=== PATIENT | female | born 2000 ===

== ENCOUNTER 2023-04-10 20:16 | Emergency (ER) | payer SELFPAY ==
[2023-04-10] MEDS ORDERED: predniSONE 20 MG TAB ONE (20:45)
[2023-04-10] MEDS ORDERED: VALACYCLOVIR 500 MG TAB ONE (20:45)
--- NOTE | 2023-04-10 20:53 | ER ---
Nurse's Notes [facility] Name: Kari Leblanc Age: 22 yrs Sex: Female : 2000 Arrival Date: 04/10/2023 Time: 20:16 Bed IW5 Private MD: Diagnosis: Rayo's palsy Presentation: 04/10 20:24 Chief complaint: Patient states: "My tongue has felt funny when I woke up this morning, mb9 feels burnt. I have a bad headache and my right side of mouth is drooping. My mother in law noticed my face around 1830 today." Last known normal was 2am. Coronavirus screen: Vaccine status: Patient reports receiving the 2nd dose of the covid vaccine. Ebola Screen: No symptoms or risks identified at this time. Initial Sepsis Screen: Does the patient meet any 2 criteria? No. Patient's initial sepsis screen is negative. Does the patient have a suspected source of infection? No. Patient's initial sepsis screen is negative. Risk Assessment: Do you want to hurt yourself or someone else? Patient reports no desire to harm self or others. Onset of symptoms was April 10, 2023. 20:24 Method Of Arrival: Ambulatory mb9 20:28 Acuity: KALYAN 3 mb9 Triage Assessment: 20:28 The onset of the patients symptoms was. General: Appears in no apparent distress. mb9 Behavior is calm, cooperative. Pain: Complains of pain in head Pain does not radiate. Quality of pain is described as pressure, Is continuous. Neuro: [place] Agitation-Sedation Scale (RASS): 0 - Alert and Calm Level of Consciousness is awake, alert, obeys commands, Oriented to person, place, time, situation, Appropriate for age Juice Mixer are equal bilaterally Moves all extremities. Gait is steady, Speech is normal, Facial droop on left, Pupils are PERRLA, Intact Reports headache. Derm: Skin is pink, warm \\T\\ dry. Historical: - Allergies: 20:28 No Known Allergies; mb9 - Home Meds: 20:28 None [Active]; mb9 - PMHx: 20:28 None; mb9 - PSHx: 20:28 None; mb9 - Immunization history:: Adult Immunizations up to date. - Social history:: Smoking status: Patient denies any tobacco usage or history of. - Family history:: not pertinent. Screenin:31 [facility] ED Fall Risk Assessment (Adult) History of falling in the last 3 months, mb9 including since admission No falls in past 3 months (0 pts) Confusion or Disorientation No (0 pts) Intoxicated or Sedated No (0 pts) Impaired Gait No (0 pts) Mobility Assist Device Used No (0 pt) Altered Elimination No (0 pt) Score/Fall Risk Level 0 - 2 = Low Risk Oriented to surroundings, Maintained a safe environment, Educated pt \\T\\ family on fall prevention, incl call for assistance when getting out of bed. Abuse screen: Denies threats or abuse. Nutritional screening: No deficits noted. Tuberculosis screening: No symptoms or risk factors identified. Assessment: 20:31 Reassessment: see triage assessment. mb9 Vital Signs: 20:24 BP 137 / 95; Pulse 87; Resp 18; Temp 98.1; Pulse Ox 100% ; Weight 136.08 kg; Height 5 mb9 ft. 4 in. ; 20:24 Body Mass Index 51.49 (136.08 kg, 162.56 cm) mb9 NIH Stroke Scale Scores: 20:35 NIHSS Score: 1 [facility] ED Course: 20:20 Patient arrived in ED. ag3 20:24 Arm band placed on. mb9 20:27 Terry Sharif MD is Attending Physician. [facility] 20:28 Triage completed. mb9 20:31 Bed in low position. Call light in reach. Side rails up X 1. Client placed on mb9 continuous cardiac and pulse oximetry monitoring. NIBP monitoring applied. 20:52 Dinh Romero MD is Referral Physician. [facility] 20:57 CT Head Brain wo Cont In Process Unspecified. EDMS 21:00 No provider procedures requiring assistance completed. Patient did not have IV access kl during this emergency room visit. Administered Medications: 20:35 Drug: predniSONE PO 60 mg PO once Route: PO; mb9 20:35 Drug: valACYclovir PO 1000 mg PO once Route: PO; mb9 Medication: 21:01 VIS not applicable for this client. kl Outcome: 20:52 Discharge ordered by . [facility] 21:00 Discharged to home ambulatory, with family, 21:00 Condition: stable 21:00 Discharge instructions given to patient, Instructed on discharge instructions, follow up and referral plans. medication usage, Demonstrated understanding of instructions, follow-up care, medications, Prescriptions given X 3, 21:01 Patient left the ED. NIH Stroke Scale - NIH Stroke Score Date: 04/10/2023 Time: 20:35 Total Score = 1 10. Dysarthria (speech clarity - read or repeat words) - 0(Normal) 11. Extinction and Inattention (visual/tactile/auditory/spatial/personal) - 0(No abnormality) 1a. Level of Consciousness (LOC) - 0(Alert) 1b. Level of Consciousness (LOC) (Month \\T\\ Age) - 0(Both) 1c. LOC Commands (Open \\T\\ Closes Eyes/Gas Adjuster) - 0(Both) 2. Best Gaze (Lateral Gaze Paresis) - 0(Normal) 3. Visual Field Loss - 0(No visual loss) 4. Facial Palsy - 1(Minor Paralysis) 5a. Left Arm: Motor (10-second hold) - 0(No drift) 5b. Right Arm: Motor (10-second hold) - 0(No drift) 6a. Left Leg: Motor (5-second hold - always test supine) - 0(No drift) 6b. Right Leg: Motor (5-second hold - always test supine) - 0(No drift) 7. Limb Ataxia (finger/nose \\T\\ heel/price - test with eyes open) - 0(Absent) 8. Sensory Loss (pinprick arms/legs/face) - 0(Normal) 9. Best Language: Aphasia (description/naming/reading) - 0(No aphasia) Initials: janeth Signatures: Dispatcher [employer] EDAlia Marquez RN RN kl Anderson, Corey, MD MD cha Gomez, Alice ag3 Breneman, Mary Beth, RN RN mb9 Corrections: (The following items were deleted from the chart) 20:28 20:24 Chief complaint: Patient states: "My tongue has felt funny when I woke up alex this morning, feels burnt. I have a bad headache and my right side of mouth is drooping. My mother in law noticed my face around 1830 today." alex
--- NOTE | 2023-04-10 20:53 | EDPHYS ---
Physician Documentation [facility] Name: Kari Leblanc Age: 22 yrs Sex: Female : 2000 Arrival Date: 04/10/2023 Time: 20:16 Bed IW5 Private MD: ED Physician Terry Sharif HPI: 04/10 20:35 This 22 yrs old Female presents to ER via Ambulatory with complaints of janeth Facial Droop, Headache, TONGUE FEELS WEIRD. 20:35 The patient presents to the emergency department with weakness of the right side of the janeth face, that is moderate. Onset: The symptoms/episode began/occurred this morning, today. Context: occurred at an unknown location. Associated signs and symptoms: The patient has no apparent associated signs or symptoms. Severity of symptoms: At their worst the symptoms were moderate in the emergency department the symptoms are unchanged. Patient's baseline: Neuro: alert and fully oriented. Current symptoms: headache, that is mild. The patient has not experienced similar symptoms in the past. Historical: - Allergies: 20:28 No Known Allergies; mb9 - Home Meds: 20:28 None [Active]; mb9 - PMHx: 20:28 None; mb9 - PSHx: 20:28 None; mb9 - Immunization history:: Adult Immunizations up to date. - Social history:: Smoking status: Patient denies any tobacco usage or history of. - Family history:: not pertinent. ROS: 20:35 Constitutional: Negative for fever, chills, and weight loss, Eyes: Negative for injury, janeth pain, redness, and discharge, ENT: Negative for injury, pain, and discharge, Neck: Negative for injury, pain, and swelling, Cardiovascular: Negative for chest pain, palpitations, and edema, Respiratory: Negative for shortness of breath, cough, wheezing, and pleuritic chest pain, Abdomen/GI: Negative for abdominal pain, nausea, vomiting, diarrhea, and constipation, Back: Negative for injury and pain, : Negative for injury, bleeding, discharge, and swelling, MS/Extremity: Negative for injury and deformity, Skin: Negative for injury, rash, and discoloration, Psych: Negative for depression, anxiety, suicide ideation, homicidal ideation, and hallucinations, Allergy/Immunology: Negative for hives, rash, and allergies, Endocrine: Negative for neck swelling, polydipsia, polyuria, polyphagia, and marked weight changes, Hematologic/Lymphatic: Negative for swollen nodes, abnormal bleeding, and unusual bruising, 20:35 Neuro: Positive for headache, weakness, of the forehead, right eye, right cheek and right jaw, Exam: 20:35 Constitutional: This is a well developed, well nourished patient who is awake, alert, janeth and in no acute distress. Head/Face: Normocephalic, atraumatic. Eyes: Pupils equal round and reactive to light, extra-ocular motions intact. Lids and lashes normal. Conjunctiva and sclera are non-icteric and not injected. Cornea within normal limits. Periorbital areas with no swelling, redness, or edema. ENT: Nares patent. No nasal discharge, no septal abnormalities noted. Tympanic membranes are normal and external auditory canals are clear. Oropharynx with no redness, swelling, or masses, exudates, or evidence of obstruction, uvula midline. Mucous membranes moist. Neck: Trachea midline, no thyromegaly or masses palpated, and no cervical lymphadenopathy. Supple, full range of motion without nuchal rigidity, or vertebral point tenderness. No Meningismus. Chest/axilla: Normal chest wall appearance and motion. Nontender with no deformity. No lesions are appreciated. Cardiovascular: Regular rate and rhythm with a normal S1 and S2. No gallops, murmurs, or rubs. Normal PMI, no JVD. No pulse deficits. Respiratory: Lungs have equal breath sounds bilaterally, clear to auscultation and percussion. No rales, rhonchi or wheezes noted. No increased work of breathing, no retractions or nasal flaring. Abdomen/GI: Soft, non-tender, with normal bowel sounds. No distension or tympany. No guarding or rebound. No evidence of tenderness throughout. Back: No spinal tenderness. No costovertebral tenderness. Full range of motion. Skin: Warm, dry with normal turgor. Normal color with no rashes, no lesions, and no evidence of cellulitis. MS/ Extremity: Pulses equal, no cyanosis. Neurovascular intact. Full, normal range of motion. Neuro: Awake and alert, GCS 15, oriented to person, place, time, and situation. Cranial nerves II-XII grossly intact. Motor strength 5/5 in all extremities. Sensory grossly intact. Cerebellar exam normal. Normal gait. Psych: Awake, alert, with orientation to person, place and time. Behavior, mood, and affect are within normal limits. 20:35 Neuro: Orientation: appropriate for stated age, no acute changes, Mentation: is normal, appropriate for stated age, Memory: is normal, Cranial nerves: facial droop noted on right, with forehead involved. Cerebellar function: is grossly normal based on the patient's age, no acute changes, Motor: is normal, is grossly normal based on the patient's age, no acute changes, moves all fours, strength is normal, Sensation: is normal, no obvious gross deficits, appropriate Gait: is steady, appropriate for age, Babinski testing is normal, Vital Signs: 20:24 BP 137 / 95; Pulse 87; Resp 18; Temp 98.1; Pulse Ox 100% ; Weight 136.08 kg; Height 5 mb9 ft. 4 in. ; 20:24 Body Mass Index 51.49 (136.08 kg, 162.56 cm) mb9 NIH Stroke Scale Scores: 20:35 NIHSS Score: 1 janeth MDM: 20:27 Patient medically screened. janeth 20:39 Data reviewed: vital signs, nurses notes, radiologic studies, CT scan. Consideration of janeth Admission/Observation Escalation of care including admission/observation considered. I considered the following discharge prescriptions or medication management in the emergency department Medications were administered in the Emergency Department. See MAR. Test considered but Not performed: Labs: no labs , no ekg. Historians other than the Patient: Parent: mom, well informed. Care significantly affected by the following chronic conditions: Obesity, lisa. Counseling: I had a detailed discussion with the patient and/or guardian regarding the historical points, exam findings, and any diagnostic results supporting the discharge/admit diagnosis, the presence of at least one elevated blood pressure reading (>120/80) during this emergency department visit, radiology results, the need for outpatient follow up. 04/10 20:35 Order name: CT Head Brain wo Cont janeth Administered Medications: 20:35 Drug: predniSONE PO 60 mg PO once Route: PO; mb9 20:35 Drug: valACYclovir PO 1000 mg PO once Route: PO; mb9 Disposition Summary: 04/10/23 20:52 Discharge Ordered Notes: Location: Home janeth Problem: new janeth Symptoms: have improved janeth Condition: Stable janeth Diagnosis - Rayo's palsy [facility] Followup: janeth - With: Private Physician - When: 2 - 3 days - Reason: Recheck today's complaints, Continuance of care, Re-evaluation by your physician Followup: janeth - With: Dinh Romero MD - When: 2 - 3 days - Reason: Recheck today's complaints, Continuance of care, Re-evaluation by your physician Discharge Instructions: - Discharge Summary Sheet [facility] - Rayo's Palsy, Adult [facility] Forms: - Medication Reconciliation Form [facility] - Thank You Letter [facility] - Antibiotic Education [facility] - Prescription Opioid Use [facility] - Patient Portal Instructions [facility] - Leadership Thank You Letter [facility] Prescriptions: - Artificial Tears(glycerin-peg) 1-0.3 % Ophthalmic drops - instill 2 drop OPHTHALMIC route every 4 to 6 hours as needed for dry eye(s); 20 [facility] milliliter; Refills: 0, Product Selection Permitted - Valtrex 1 gram Oral tablet - take 1 tablet ORAL route 3 times per day; 21 tablet; Refills: 0, Product janeth Selection Permitted - Prednisone 20 mg Oral tablet - take 3 tablets ORAL route once daily for 4 days; 12 tablet; Refills: 0, Product janeth Selection Permitted NIH Stroke Scale - NIH Stroke Score Date: 04/10/2023 Time: 20:35 Total Score = 1 10. Dysarthria (speech clarity - read or repeat words) - 0(Normal) 11. Extinction and Inattention (visual/tactile/auditory/spatial/personal) - 0(No abnormality) 1a. Level of Consciousness (LOC) - 0(Alert) 1b. Level of Consciousness (LOC) (Month \T\ Age) - 0(Both) 1c. LOC Commands (Open \T\ Closes Eyes/Survey Director) - 0(Both) 2. Best Gaze (Lateral Gaze Paresis) - 0(Normal) 3. Visual Field Loss - 0(No visual loss) 4. Facial Palsy - 1(Minor Paralysis) 5a. Left Arm: Motor (10-second hold) - 0(No drift) 5b. Right Arm: Motor (10-second hold) - 0(No drift) 6a. Left Leg: Motor (5-second hold - always test supine) - 0(No drift) 6b. Right Leg: Motor (5-second hold - always test supine) - 0(No drift) 7. Limb Ataxia (finger/nose \T\ heel/price - test with eyes open) - 0(Absent) 8. Sensory Loss (pinprick arms/legs/face) - 0(Normal) 9. Best Language: Aphasia (description/naming/reading) - 0(No aphasia) Initials: janeth Signatures: Dispatcher [employer] Terry Nicole MD MD cha Breneman, Paz Hartman, RN RN mb9
--- NOTE | 2023-04-10 21:38 | RAD REPORT ---
EXAM DESCRIPTION: CT - Head Brain Wo Cont - 04/10/2023 8:58 pm CLINICAL HISTORY: FENG'S PALSY COMPARISON: No comparisons TECHNIQUE: Noncontrast head CT images were obtained without IV contrast. Multiplanar reformats were generated and reviewed. All CT scans are performed using dose optimization technique as appropriate and may include automated exposure control or mA/KV adjustment according to patient size. FINDINGS: No intracranial hemorrhage, mass, or edema. Midline structures are unremarkable. Normal ventricular caliber for age. Morales-white matter differentiation is preserved, without evidence of acute infarct. No abnormal extra- axial fluid collections. Mastoid air cells are well aerated. Mucous retention cyst in the left maxillary sinus. No acute bony findings. IMPRESSION: No evidence of an acute intracranial process.
[2023-04-10 22:11] VITALS: BP 137/95; TEMP 98.1; O2SAT 100
== END 2023-04-10 21:01 | disposition home or self-care (01) ==
LOC: ER 20:16
DX: G51.0 Bell's palsy (principal)
CPT/HCPCS: 70450; 99283; J7512